=== PATIENT | male | born 1965 | race Native Hawaiian/Other Pacific Islander ===

== ENCOUNTER 2019-06-25 18:43 | Emergency (ER) | payer BC ==
[~2019-06-25] VITALS: Ht 182.9 cm; Wt 93.0 kg
[2019-06-25 18:44] VITALS: TEMP 99
[2019-06-25 20:43] VITALS: BP 117/78
== END 2019-06-25 20:45 | disposition home or self-care (01) ==
LOC: ED 18:43
PROC: 0HQ0XZZ Repair Scalp Skin, External Approach (ICD-10-PCS; principal; 2019-06-25)
DX: S01.01XA Laceration without foreign body of scalp, initial encounter (principal); W22.8XXA Striking against or struck by other objects, initial encounter
CPT/HCPCS: 90471; 90715; 99283

== ENCOUNTER 2022-07-20 09:12 | Outpatient (CLI) | payer OTHER | END 2022-07-20 19:49 | disposition home or self-care (01) | LOC: CT 09:12 | PROVIDERS: ATTEND Nurse Practitioner | DX: R06.02 Shortness of breath (principal) ==

== ENCOUNTER 2022-09-26 08:50 | Outpatient (CLI) | payer BC | END 2022-09-26 19:14 | disposition home or self-care (01) | LOC: RESP 08:50 | PROVIDERS: ATTEND Internal Medicine Cardiovascular Disease | DX: R06.02 Shortness of breath (principal) ==

== ENCOUNTER 2022-11-22 07:57 | Outpatient (CLI) | payer BC | END 2022-11-22 18:58 | disposition home or self-care (01) | LOC: RAD 07:57 | PROVIDERS: ATTEND Internal Medicine Pulmonary Disease | DX: R06.09 Other forms of dyspnea (principal) ==

== ENCOUNTER 2023-03-05 11:06 | Outpatient (CLI) | payer BC | END 2023-03-05 19:21 | disposition home or self-care (01) | LOC: LABW 11:06 | PROVIDERS: ATTEND Internal Medicine Pulmonary Disease | DX: E88.01 Alpha-1-antitrypsin deficiency (principal) | CPT/HCPCS: 36415; 82103 ==